=== PATIENT | female | born 1975 | race Caucasian/White ===

== ENCOUNTER → 2020-12-19 | Outpatient (CLI) | payer BC | END | disposition home or self-care (01) | LOC: LAB SHORT 11:22 | DX: D22.5 Melanocytic nevi of trunk (principal) | CPT/HCPCS: 88305 ==

== ENCOUNTER 2025-07-22 06:09 | Day surgery (SDC) | payer OTHER ==
[~2025-07-22] VITALS: Ht 175.3 cm; Wt 73.3 kg
[2025-07-22] MEDS ORDERED: CeFAZolin Sodium 2,000 MG VIAL ONE (06:20)
[2025-07-22] MEDS ORDERED: Norethindrone0.35 MG (06:47)
[2025-07-22] MEDS ORDERED: ERGO400 (06:51)
[2025-07-22] MEDS ORDERED: Vitamin C100 MG (06:51)
[2025-07-22] MEDS ORDERED: FISH OIL 1,0001 EA10 (06:51)
[2025-07-22] MEDS ORDERED: IRON18 M1 (06:52)
[2025-07-22] MEDS ORDERED: ZINC15 PO (06:53)
[2025-07-22] MEDS ORDERED: FentaNYL Citrate 50 MCG/ML 2 ML Injection ONE (07:05)
[2025-07-22] MEDS ORDERED: Midazolam HCl 1MG / ML 2ML Vial ONE (07:05)
[2025-07-22] MEDS ORDERED: Ondansetron HCl 2 MG / ML 2ML Vial ONE (07:05)
[2025-07-22] MEDS ORDERED: Dexamethasone Sod Phos 10 MG/ML 1ML VIAL ONE (07:05)
[2025-07-22] MEDS ORDERED: ePHEDrine Sulfate 50 MG/ML 1ML Injection ONE (07:59)
--- NOTE | 2025-07-22 08:04 | NUR ---
07/22/25 0804 Antonette Coleman LENGTH:5.5 WIDTH: 3.6 TIME:1:10
[2025-07-22 09:14] VITALS: BP 115/61
== END 2025-07-22 09:05 | disposition home or self-care (01) ==
LOC: ORSCSDS 06:09
DX: N92.1 Excessive and frequent menstruation with irregular cycle (principal); N84.0 Polyp of corpus uteri
CPT/HCPCS: 88305; J0690; J1100; J2250; J2405; J2704; J3010; J7120